=== PATIENT | male | born 1975 | race Caucasian/White ===

== ENCOUNTER 2020-06-05 09:46 | Inpatient (IN) | payer OTHER ==
[~2020-06-05] VITALS: Ht 170.2 cm; Wt 63.5 kg
[2020-06-05 11:51] LABS: BASOPHILS % (AUTO) 0.8 % (0.0-2.0); EOSINOPHILS % (AUTO) 2.2 % (1.0-6.0); HEMATOCRIT 41.1 % (41-53); HEMOGLOBIN 13.8 g/dL (13.5-17.5); LYMPHOCYTES # (AUTO) 1.5 K/uL (1.0-4.8); LYMPHOCYTES % (AUTO) 19.9 % (22.0-44.0); MEAN CORPUSCULAR HEMOGLOBIN 29.9 pg (26.0-34.0); MEAN CORPUSCULAR HGB CONC 33.6 G/dL (31.0-37.0); MEAN CORPUSCULAR VOLUME 89 fL (80-100); MONOCYTES # (AUTO) 0.3 K/uL (0.1-1.0); MONOCYTES % (AUTO) 4.2 % (2.0-9.0); NEUTROPHILS # (AUTO) 5.6 K/uL (1.8-7.7); NEUTROPHILS % (AUTO) 72.9 % (40.0-70.0); PLATELET COUNT (AUTO) 417 K/uL (150-450); RED BLOOD CELL COUNT(AUTO) 4.62 MIL/uL (4.50-5.90); RED CELL DISTRIBUTION WIDTH 13.9 % (11.5-14.5)
[2020-06-05] MEDS ORDERED: ACETAMINOPHEN 325 MG TABLET PO ONE (12:00)
[2020-06-05] MEDS ORDERED: IBUPROFEN 400 MG TABLET PO ONE (12:00)
[2020-06-05 12:06] LABS: ANION GAP 8 mmol/L (8-16); CALCIUM, TOTAL 9.8 mg/dL (8.8-10.5); CARBON DIOXIDE 30 mmol/L (22-29); CHLORIDE 100 mmol/L (98-107); CREATININE 0.79 mg/dL (0.60-1.30); GLOMERULAR FILTR. RATE CALC > 60 mL/min (>60); GLUCOSE,RANDOM 142 mg/dL (70-110); POTASSIUM 4.4 mmol/L (3.5-5.1); SODIUM SERUM 138 mmol/L (136-145); UREA NITROGEN, BLOOD 12 mg/dL (7-18)
[2020-06-05 12:12] LABS: APPEARANCE,URINE CLEAR (CLEAR); BILIRUBIN,URINE NEGATIVE (NEGATIVE); GLUCOSE, URINE (UA) NEGATIVE (NEGATIVE); KETONES,URINE NEGATIVE (NEGATIVE); LEUKOCYTE ESTERASE ,URINE NEGATIVE (NEGATIVE); NITRATE,URINE NEGATIVE (NEGATIVE); OCCULT BLOOD,URINE NEGATIVE (NEGATIVE); PROTEIN,URINE NEGATIVE (NEGATIVE)
[2020-06-05 12:12] LABS: ALANINE AMINOTRANSFERASE 18 U/L (12-78); ALBUMIN 3.9 g/dL (3.4-5.0); ALKALINE PHOSPHATASE 87 U/L (46-116); ASPARTATE AMINOTRANSFERASE 15 U/L (15-37); BILIRUBIN,TOTAL 0.4 mg/dL (0.1-1.0); TOTAL PROTEIN, SERUM 9.1 g/dL (6.4-8.2)
[2020-06-05] MEDS ORDERED: MAGNESIUM HYDROXIDE SUSPENSION 30 ML UDCUP PO PRN (12:15)
[2020-06-05] MEDS ORDERED: ACETAMINOPHEN 325 MG TABLET PO PRN (12:15)
[2020-06-05] MEDS ORDERED: BISACODYL 10 MG RECTAL RECTAL SUPPOSITORY PR PRN (12:15)
[2020-06-05] MEDS ORDERED: 0.9% SODIUM CHLORIDE 10 ML SYRINGE IVP PRN ×2 (12:15)
[2020-06-05] MEDS ORDERED: ONDANSETRON HCL 4 MG/2 ML VIAL IVP PRN ×2 (12:15)
[2020-06-05] MEDS ORDERED: DOCUSATE SODIUM 100 MG CAPSULE PO PRN (12:15)
[2020-06-05] MEDS ORDERED: CloNIDine HCL 0.1 MG TABLET PO PRN (12:15)
[2020-06-05] MEDS: SODIUM CHLORIDE 0.9% 1,000 ML IV SCH ×2 (12:27→23:59)
[2020-06-05] MEDS: PANTOPRAZOLE SODIUM 40 MG DR TABLET PO SCH (12:32)
[2020-06-05] MEDS: MULTIVITAMINS WITH MINERALS, THERAPEUTIC TABLET PO SCH (12:32)
[2020-06-05] MEDS: HEPARIN SODIUM,PORCINE 5,000 UNITS/ML VIAL SQ SCH ×2 (12:32→20:45)
[2020-06-05] MEDS: FOLIC ACID 1 MG TABLET PO SCH (12:32)
[2020-06-05] MEDS: THIAMINE 100 MG TABLET PO SCH (12:33)
[2020-06-05 13:01] LABS: INFLUENZA TYPE A NEGATIVE FOR TYPE A (NEGATIVE); INFLUENZA TYPE B NEGATIVE FOR TYPE B (NEGATIVE)
[2020-06-05 13:17] LABS: C-REACTIVE PROTEIN QUANT 2.34 mg/dL (0.00-0.30); FERRITIN 130 ng/mL (26-388)
[2020-06-05 13:40] LABS: ERYTHROCYTE SEDIMENTATION RATE 43 MM/HR (0-15)
[2020-06-05 13:47] VITALS: BP 128/72
[2020-06-05 19:34] VITALS: BP 131/87
[2020-06-06 05:55] VITALS: BP 130/89
[2020-06-06 08:45] VITALS: BP 134/87
[2020-06-06] MEDS: HEPARIN SODIUM,PORCINE 5,000 UNITS/ML VIAL SQ SCH ×3 (09:00→22:01)
[2020-06-06] MEDS: MULTIVITAMINS WITH MINERALS, THERAPEUTIC TABLET PO SCH (09:07)
[2020-06-06] MEDS: THIAMINE 100 MG TABLET PO SCH (09:07)
[2020-06-06] MEDS: FOLIC ACID 1 MG TABLET PO SCH (09:07)
[2020-06-06] MEDS: PANTOPRAZOLE SODIUM 40 MG DR TABLET PO SCH (09:07)
[2020-06-06] MEDS ORDERED: IPRATROPIUM BROMIDE 0.5 MG/2.5 ML NEB SOLUTION NEB PRN (12:30)
[2020-06-06] MEDS ORDERED: ALBUTEROL SULFATE 2.5 MG/0.5 ML NEB SOLUTION NEB PRN (12:30)
[2020-06-06] MEDS: SODIUM CHLORIDE 0.9% 1,000 ML IV SCH (16:20)
[2020-06-06 16:22] VITALS: BP 142/83
[2020-06-06 20:28] VITALS: BP 147/80
[2020-06-06] MEDS: ACETAMINOPHEN 325 MG TABLET PO PRN (22:05)
[2020-06-06 23:15] VITALS: BP 140/87
[2020-06-07] MEDS: SODIUM CHLORIDE 0.9% 1,000 ML IV SCH ×3 (00:08→20:03)
[2020-06-07 04:55] VITALS: BP 130/79
[2020-06-07 07:54] VITALS: BP 148/90
[2020-06-07] MEDS: PANTOPRAZOLE SODIUM 40 MG DR TABLET PO SCH (08:28)
[2020-06-07] MEDS: HEPARIN SODIUM,PORCINE 5,000 UNITS/ML VIAL SQ SCH ×2 (08:28→20:02)
[2020-06-07] MEDS: FOLIC ACID 1 MG TABLET PO SCH (08:28)
[2020-06-07] MEDS: MULTIVITAMINS WITH MINERALS, THERAPEUTIC TABLET PO SCH (08:29)
[2020-06-07] MEDS: THIAMINE 100 MG TABLET PO SCH (08:29)
[2020-06-07 16:18] VITALS: BP 131/81
[2020-06-07] MEDS: ACETAMINOPHEN 325 MG TABLET PO PRN (20:03)
[2020-06-07 20:12] VITALS: BP 122/88
[2020-06-08 04:49] VITALS: BP 130/76
[2020-06-08] MEDS: MULTIVITAMINS WITH MINERALS, THERAPEUTIC TABLET PO SCH (08:12)
[2020-06-08] MEDS: PANTOPRAZOLE SODIUM 40 MG DR TABLET PO SCH (08:13)
[2020-06-08] MEDS: FOLIC ACID 1 MG TABLET PO SCH (08:13)
[2020-06-08] MEDS: HEPARIN SODIUM,PORCINE 5,000 UNITS/ML VIAL SQ SCH ×2 (08:13→20:23)
[2020-06-08] MEDS: THIAMINE 100 MG TABLET PO SCH (08:13)
[2020-06-08 08:25] VITALS: BP 139/90
[2020-06-08] MEDS: SODIUM CHLORIDE 0.9% 1,000 ML IV SCH (10:58)
[2020-06-08 15:48] VITALS: BP 127/76
[2020-06-08 20:16] VITALS: BP 147/84
[2020-06-09 03:21] VITALS: BP 139/87
[2020-06-09 05:43] VITALS: BP 143/81
[2020-06-09 08:23] VITALS: BP 154/68
[2020-06-09] MEDS: MULTIVITAMINS WITH MINERALS, THERAPEUTIC TABLET PO SCH (08:44)
[2020-06-09] MEDS: FOLIC ACID 1 MG TABLET PO SCH (08:44)
[2020-06-09] MEDS: THIAMINE 100 MG TABLET PO SCH (08:45)
[2020-06-09] MEDS: PANTOPRAZOLE SODIUM 40 MG DR TABLET PO SCH (08:45)
[2020-06-09] MEDS: HEPARIN SODIUM,PORCINE 5,000 UNITS/ML VIAL SQ SCH ×3 (08:45→20:38)
[2020-06-09] MEDS: ACETAMINOPHEN 325 MG TABLET PO PRN (10:30)
[2020-06-09 15:46] VITALS: BP 140/72
[2020-06-09 20:47] VITALS: BP 131/85
[2020-06-10] MEDS: ACETAMINOPHEN 325 MG TABLET PO PRN ×2 (03:20→21:44)
[2020-06-10] MEDS: THIAMINE 100 MG TABLET PO SCH (08:25)
[2020-06-10] MEDS: MULTIVITAMINS WITH MINERALS, THERAPEUTIC TABLET PO SCH (08:25)
[2020-06-10] MEDS: PANTOPRAZOLE SODIUM 40 MG DR TABLET PO SCH (08:25)
[2020-06-10] MEDS: HEPARIN SODIUM,PORCINE 5,000 UNITS/ML VIAL SQ SCH ×2 (08:26→21:44)
[2020-06-10] MEDS: FOLIC ACID 1 MG TABLET PO SCH (08:31)
[2020-06-10 08:40] VITALS: BP 131/98
[2020-06-10 15:45] VITALS: BP 117/81
[2020-06-10 20:18] VITALS: BP 122/75
[2020-06-11 04:27] VITALS: BP 138/85
[2020-06-11 08:38] VITALS: BP 130/80
[2020-06-11] MEDS: MULTIVITAMINS WITH MINERALS, THERAPEUTIC TABLET PO SCH (08:46)
[2020-06-11] MEDS: FOLIC ACID 1 MG TABLET PO SCH (08:46)
[2020-06-11] MEDS: PANTOPRAZOLE SODIUM 40 MG DR TABLET PO SCH (08:46)
[2020-06-11] MEDS: THIAMINE 100 MG TABLET PO SCH (08:47)
[2020-06-11] MEDS: HEPARIN SODIUM,PORCINE 5,000 UNITS/ML VIAL SQ SCH ×2 (08:47→20:33)
[2020-06-11 15:45] VITALS: BP 113/76
[2020-06-11 20:51] VITALS: BP 134/74
[2020-06-12] MEDS: ACETAMINOPHEN 325 MG TABLET PO PRN (04:18)
[2020-06-12 05:09] VITALS: BP 122/89
[2020-06-12] MEDS: HEPARIN SODIUM,PORCINE 5,000 UNITS/ML VIAL SQ SCH ×2 (07:59→20:14)
[2020-06-12] MEDS: MULTIVITAMINS WITH MINERALS, THERAPEUTIC TABLET PO SCH (07:59)
[2020-06-12] MEDS: THIAMINE 100 MG TABLET PO SCH (07:59)
[2020-06-12] MEDS: PANTOPRAZOLE SODIUM 40 MG DR TABLET PO SCH (07:59)
[2020-06-12] MEDS: FOLIC ACID 1 MG TABLET PO SCH (07:59)
[2020-06-12 08:00] VITALS: BP 122/88
[2020-06-12 15:38] VITALS: BP 123/81
[2020-06-12 20:12] VITALS: BP 130/74
[2020-06-13 04:43] VITALS: BP 135/90
[2020-06-13 08:02] VITALS: BP 119/83
[2020-06-13] MEDS: PANTOPRAZOLE SODIUM 40 MG DR TABLET PO SCH (08:59)
[2020-06-13] MEDS: THIAMINE 100 MG TABLET PO SCH (08:59)
[2020-06-13] MEDS: MULTIVITAMINS WITH MINERALS, THERAPEUTIC TABLET PO SCH (08:59)
[2020-06-13] MEDS: FOLIC ACID 1 MG TABLET PO SCH (08:59)
[2020-06-13] MEDS: HEPARIN SODIUM,PORCINE 5,000 UNITS/ML VIAL SQ SCH ×2 (09:00→20:05)
[2020-06-13 15:52] VITALS: BP 128/76
[2020-06-13 19:45] VITALS: BP 121/84
[2020-06-13] MEDS: ACETAMINOPHEN 325 MG TABLET PO PRN (20:05)
[2020-06-14 05:00] VITALS: BP 136/83
[2020-06-14 08:09] VITALS: BP 129/81
[2020-06-14] MEDS: HEPARIN SODIUM,PORCINE 5,000 UNITS/ML VIAL SQ SCH ×2 (08:26→21:12)
[2020-06-14] MEDS: MULTIVITAMINS WITH MINERALS, THERAPEUTIC TABLET PO SCH (08:26)
[2020-06-14] MEDS: FOLIC ACID 1 MG TABLET PO SCH (08:27)
[2020-06-14] MEDS: PANTOPRAZOLE SODIUM 40 MG DR TABLET PO SCH (08:27)
[2020-06-14] MEDS: THIAMINE 100 MG TABLET PO SCH (08:27)
[2020-06-14 15:46] VITALS: BP 134/82
[2020-06-14 20:36] VITALS: BP 128/74
[2020-06-15] MEDS: HEPARIN SODIUM,PORCINE 5,000 UNITS/ML VIAL SQ SCH ×2 (07:49→21:45)
[2020-06-15] MEDS: ACETAMINOPHEN 325 MG TABLET PO PRN (07:50)
[2020-06-15] MEDS: THIAMINE 100 MG TABLET PO SCH (07:50)
[2020-06-15] MEDS: FOLIC ACID 1 MG TABLET PO SCH (07:50)
[2020-06-15] MEDS: MULTIVITAMINS WITH MINERALS, THERAPEUTIC TABLET PO SCH (07:50)
[2020-06-15] MEDS: PANTOPRAZOLE SODIUM 40 MG DR TABLET PO SCH (07:50)
[2020-06-15 08:10] VITALS: BP 131/92
[2020-06-15 15:25] VITALS: BP 126/79
[2020-06-15 20:05] VITALS: BP 130/89
[2020-06-16 04:40] VITALS: BP 131/81
[2020-06-16] MEDS: FOLIC ACID 1 MG TABLET PO SCH (08:20)
[2020-06-16] MEDS: PANTOPRAZOLE SODIUM 40 MG DR TABLET PO SCH (08:20)
[2020-06-16] MEDS: HEPARIN SODIUM,PORCINE 5,000 UNITS/ML VIAL SQ SCH ×2 (08:21→20:24)
[2020-06-16] MEDS: THIAMINE 100 MG TABLET PO SCH (08:21)
[2020-06-16] MEDS: MULTIVITAMINS WITH MINERALS, THERAPEUTIC TABLET PO SCH (08:21)
[2020-06-16 08:24] VITALS: BP 124/89
[2020-06-16 15:46] VITALS: BP 126/78
[2020-06-16 19:30] VITALS: BP 127/80
[2020-06-17 04:00] VITALS: BP 141/86
[2020-06-17] MEDS: HEPARIN SODIUM,PORCINE 5,000 UNITS/ML VIAL SQ SCH ×3 (09:00→21:00)
[2020-06-17] MEDS: FOLIC ACID 1 MG TABLET PO SCH (09:13)
[2020-06-17] MEDS: MULTIVITAMINS WITH MINERALS, THERAPEUTIC TABLET PO SCH (09:13)
[2020-06-17] MEDS: THIAMINE 100 MG TABLET PO SCH (09:14)
[2020-06-17] MEDS: PANTOPRAZOLE SODIUM 40 MG DR TABLET PO SCH (09:14)
[2020-06-17 12:50] VITALS: BP 126/83
[2020-06-17 19:00] VITALS: BP 127/80
[2020-06-17] MEDS: ACETAMINOPHEN 325 MG TABLET PO PRN (20:19)
[2020-06-18 04:00] VITALS: BP 111/72
[2020-06-18 07:25] VITALS: BP 117/78
[2020-06-18] MEDS: ACETAMINOPHEN 325 MG TABLET PO PRN (08:39)
[2020-06-18] MEDS: FOLIC ACID 1 MG TABLET PO SCH (08:40)
[2020-06-18] MEDS: THIAMINE 100 MG TABLET PO SCH (08:40)
[2020-06-18] MEDS: PANTOPRAZOLE SODIUM 40 MG DR TABLET PO SCH (08:40)
[2020-06-18] MEDS: MULTIVITAMINS WITH MINERALS, THERAPEUTIC TABLET PO SCH (08:40)
[2020-06-18] MEDS: HEPARIN SODIUM,PORCINE 5,000 UNITS/ML VIAL SQ SCH ×2 (09:00→21:00)
[2020-06-18 20:36] VITALS: BP 125/81
[2020-06-19 05:40] VITALS: BP 125/79
[2020-06-19] MEDS: FOLIC ACID 1 MG TABLET PO SCH (08:12)
[2020-06-19] MEDS: MULTIVITAMINS WITH MINERALS, THERAPEUTIC TABLET PO SCH (08:12)
[2020-06-19] MEDS: THIAMINE 100 MG TABLET PO SCH (08:12)
[2020-06-19] MEDS: PANTOPRAZOLE SODIUM 40 MG DR TABLET PO SCH (08:12)
[2020-06-19] MEDS: ACETAMINOPHEN 325 MG TABLET PO PRN ×2 (08:13→15:23)
[2020-06-19] MEDS: HEPARIN SODIUM,PORCINE 5,000 UNITS/ML VIAL SQ SCH ×2 (08:17→21:00)
[2020-06-19 08:45] VITALS: BP 135/84
[2020-06-19 19:30] VITALS: BP 127/86
[2020-06-20 04:01] VITALS: BP 124/75
[2020-06-20 08:26] VITALS: BP 119/87
[2020-06-20] MEDS: FOLIC ACID 1 MG TABLET PO SCH (08:33)
[2020-06-20] MEDS: PANTOPRAZOLE SODIUM 40 MG DR TABLET PO SCH (08:33)
[2020-06-20] MEDS: MULTIVITAMINS WITH MINERALS, THERAPEUTIC TABLET PO SCH (08:33)
[2020-06-20] MEDS: HEPARIN SODIUM,PORCINE 5,000 UNITS/ML VIAL SQ SCH ×2 (08:34→21:00)
[2020-06-20] MEDS: THIAMINE 100 MG TABLET PO SCH (08:49)
[2020-06-20 15:42] VITALS: BP 120/78
[2020-06-20 19:00] VITALS: BP 130/73
[2020-06-20] MEDS: ACETAMINOPHEN 325 MG TABLET PO PRN (21:32)
[2020-06-21 04:40] VITALS: BP 133/75
== END 2020-06-21 07:15 | DRG 177 ==
LOC: EMS 09:47 → EDBD 09:47 → 6N 12:06
PROVIDERS: ADMIT Internal Medicine; ATTEND Internal Medicine
DX: U07.1 COVID-19 (principal); J12.89 Other viral pneumonia; F15.23 Other stimulant dependence with withdrawal; J45.909 Unspecified asthma, uncomplicated; Z91.040 Latex allergy status; Z87.891 Personal history of nicotine dependence
CPT/HCPCS: 82728; 84145; 85379; 85651; 86140; 87040; 87804; 93005; J1644; J7030; 36415-L1; 36415-TC; 71045-TC; 81003-TC; U0003-CS